=== PATIENT | male | born 1975 | race Caucasian/White ===

== ENCOUNTER → 2018-03-09 | Outpatient (CLI) | payer BC ==
--- NOTE | 2018-03-09 09:56 | Diagnostic Imaging Report ---
TECHNIQUE: Magnetic resonance imaging of the LEFT KNEE was performed WITHOUT injected contrast. HISTORY: Left knee pain COMPARISON: None available. FINDINGS: LIGAMENTS AND TENDONS: ACL: Mucoid degeneration PCL: Intact Collateral ligaments: Intact Iliotibial band: Unremarkable Popliteal tendon: Intact Extensor mechanism: Intact JOINT: Menisci: Medial: Horizontal tear body and posterior horn. Lateral: Intact Articular Cartilage: Medial Compartment: Diffuse partial thickness cartilage loss Lateral Compartment: Diffuse partial thickness cartilage loss Patellofemoral Compartment: No focal defect. Joint Fluid: The amount of fluid within the joint is within physiologic limits. BONE: No focal or infiltrative bone marrow replacing abnormality. No acute fracture. SOFT TISSUES: Otherwise, unremarkable. IMPRESSION: Medial meniscus horizontal tear body and posterior horn. Signed by: Dr. Raghu Arias M.D. on 03/09/2018 9:14 AM
== END ==
LOC: MRI 07:21
PROVIDERS: ATTEND Family Medicine
DX: M25.562 Pain in left knee (principal); M23.301 Other meniscus derangements, unspecified lateral meniscus, left knee; G89.29 Other chronic pain